=== PATIENT | female | born 1940 | race Hispanic/Latino ===

== ENCOUNTER 2017-04-03 23:18 | Emergency (ER) | payer MEDICARE ==
[2017-04-04 00:10] LABS: Basophils % (Auto) 0.5 % (0.0-1.8); Hematocrit 42.7 % (30.3-42.9); Hemoglobin 14.3 gm/dl (10.1-14.3); Mean Corpuscular HGB Conc 33 % (30-34); Mean Corpuscular Hemoglobin 33 pg (28-32); Mean Corpuscular Volume 98 fl (79-97); Platelet Count 224 K/mm3 (140-440); Red Blood Count 4.36 M/mm3 (3.65-5.03); Red Cell Distribution Width 12.4 % (13.2-15.2)
[2017-04-04 00:21] LABS: INR 1.51 (0.87-1.13)
[2017-04-04 00:22] LABS: Partial Thromboplastin Time 34.1 Sec. (24.2-36.6)
[2017-04-04 00:30] LABS: Alanine Aminotransferase 17 units/L (7-56); Albumin 4.3 g/dL (3.9-5); Albumin/Globulin Ratio 1.7 %; Alkaline Phosphatase 76 units/L (35-129); Anion Gap 17 mmol/L; BUN/Creatinine Ratio 22; Blood Urea Nitrogen 13 mg/dL (7-17); Calcium 8.7 mg/dL (8.4-10.2); Carbon Dioxide 25 mmol/L (22-30); Chloride 103.9 mmol/L (98-107); Glucose 111 mg/dL (65-100); Lipase 37 units/L (13-60); Sodium 142 mmol/L (137-145); Total Protein 6.8 g/dL (6.3-8.2)
[2017-04-04 01:45] LABS: Bilirubin,Urine NEG (Negative); Blood,Urine MOD (Negative); Ketones,Urine NEG (Negative); Leukocyte Esterase,Urine NEG (Negative); Nitrite,Urine NEG (Negative); Protein,Urine <15 mg/dL mg/dL (Negative); Urobilinogen,Urine < 2.0 mg/dL (<2.0)
[2017-04-04 01:46] LABS: Bacteria,Urine 3+ /HPF (Negative); Mucus,Urine FEW /HPF
[2017-04-04] MEDS ORDERED: SUBLIMAZE ONE (04:29)
[2017-04-04 04:35] VITALS: BP 160/78
[2017-04-04] MEDS ORDERED: SUBLIMAZE IV ONE (04:37)
--- NOTE | 2017-04-04 05:34 | Emergency Department Report ---
ED General Adult HPI - General Chief complaint: Abdominal Pain Stated complaint: BACK/LT FLANK PAIN Time Seen by Provider: 04/04/17 04:15 Source: patient, RN notes reviewed, old records reviewed Mode of arrival: Ambulatory Limitations: No Limitations - History of Present Illness Initial comments: Primary care Dr.: Dr. Peterson Cardiology: Dr. Casillas This is a 76-year-old female, past medical history includes hypertension, high cholesterol, paroxysmal atrial fibrillation, on warfarin anticoagulation Patient presents to the ER with left lower back pain/left lower quadrant pain. The pain has been present since 9:00 yesterday. It is constant. It increases with palpation, physical exertion, decreases with rest. There is no headache, neck pain, chest pain, upper quadrant abdominal pain. No leg pain, no leg swelling, no DVT or pulmonary embolus risk factors as per patient, patient denies urinary symptoms. Patient presented to the hospital last year with similar symptoms, had a negative noncontrast CT scan of the abdomen and pelvis -: Gradual Location: back, abdomen Radiation: back Severity scale (0 -10): 10 Quality: aching Consistency: intermittent Improves with: movement, rest Associated Symptoms: denies: confusion, chest pain, cough, diaphoresis, fever/ chills, headaches, loss of appetite, malaise, nausea/vomiting, rash, shortness of breath, syncope, weakness - Related Data Home Medications Medication Instructions Recorded Confirmed Last Taken Estrogens, Conjugated [Premarin] 0.3 mg PO QDAY 12/29/12 04/03/17 1 Day Ago ~03/28/16 Hydrochlorothiazide [HCTZ] 12.5 mg PO QDAY 12/29/12 04/03/17 1 Day Ago ~03/28/16 Lisinopril [Zestril TAB] 40 mg PO QDAY 12/29/12 04/03/17 1 Day Ago ~03/28/16 Simvastatin 20 mg PO QDAY 12/29/12 04/03/17 1 Day Ago ~03/28/16 Metoprolol Xl [Metoprolol 25 mg PO QDAY 12/09/15 04/03/17 1 Day Ago SUCCINATE ER TAB] ~03/28/16 Warfarin [Coumadin] 2.5 mg PO QDAY 12/09/15 04/03/17 1 Day Ago ~03/28/16 amLODIPine 5 mg PO DAILY 04/03/17 04/03/17 Unknown Previous Rx's Medication Instructions Recorded Last Taken Type Acetaminophen [Acetaminophen TAB] 500 mg PO Q4HR PRN #30 tablet 03/29/16 Unknown Rx Acetaminophen [Tylenol Arthritis] 650 mg PO Q6HR PRN #30 tablet.er 04/04/17 Unknown Rx Allergies Allergy/AdvReac Type Severity Reaction Status Date / Time codeine Allergy rash, Verified 09/20/13 17:34 itching metronidazole [From Flagyl] Allergy bitter Verified 09/20/13 17:34 taste with all foods bandaid AdvReac sores on Uncoded 09/20/13 17:34 skin tape AdvReac sores on Uncoded 09/20/13 17:34 skin ED Review of Systems ROS: Stated complaint: BACK/LT FLANK PAIN Other details as noted in HPI Constitutional: denies: fever Eyes: denies: eye discharge ENT: denies: epistaxis Respiratory: denies: cough Cardiovascular: denies: chest pain Gastrointestinal: abdominal pain Genitourinary: denies: dysuria Musculoskeletal: back pain Skin: denies: lesions Neurological: denies: weakness ED Past Medical Hx - Past Medical History Hx Hypertension: Yes (since 2008) Hx Congestive Heart Failure: No Hx Diabetes: No Hx GERD: Yes Hx Kidney Stones: Yes Hx Asthma: No Hx COPD: No Additional medical history: dysplasia, AFib - Surgical History Hx Appendectomy: Yes Hx Breast Surgery: Yes (right breast open biopsy x 5) Additional Surgical History: cystoscope right. polyps removed from urethra, Right Knee. neck surgery x 2. hysterectomy. T&A. cataract surgery both eyes - Social History Smoking Status: Never Smoker Substance Use Type: None - Medications Home Medications: Home Medications Medication Instructions Recorded Confirmed Last Taken Type Estrogens, Conjugated [Premarin] 0.3 mg PO QDAY 12/29/12 04/03/17 1 Day Ago History ~03/28/16 Hydrochlorothiazide [HCTZ] 12.5 mg PO QDAY 12/29/12 04/03/17 1 Day Ago History ~03/28/16 Lisinopril [Zestril TAB] 40 mg PO QDAY 12/29/12 04/03/17 1 Day Ago History ~03/28/16 Simvastatin 20 mg PO QDAY 12/29/12 04/03/17 1 Day Ago History ~03/28/16 Metoprolol Xl [Metoprolol 25 mg PO QDAY 12/09/15 04/03/17 1 Day Ago History SUCCINATE ER TAB] ~03/28/16 Warfarin [Coumadin] 2.5 mg PO QDAY 12/09/15 04/03/17 1 Day Ago History ~03/28/16 Acetaminophen [Acetaminophen TAB] 500 mg PO Q4HR PRN #30 tablet 03/29/16 Unknown Rx amLODIPine 5 mg PO DAILY 04/03/17 04/03/17 Unknown History Acetaminophen [Tylenol Arthritis] 650 mg PO Q6HR PRN #30 tablet.er 04/04/17 Unknown Rx ED Physical Exam - General Limitations: No Limitations General appearance: alert, in no apparent distress - Head Head exam: Present: atraumatic, normocephalic - Eye Eye exam: Present: normal appearance, EOMI. Absent: nystagmus - ENT ENT exam: Present: normal exam, normal orophraynx, mucous membranes moist, normal external ear exam - Neck Neck exam: Present: normal inspection, full ROM - Respiratory Respiratory exam: Present: normal lung sounds bilaterally. Absent: respiratory distress - Cardiovascular Cardiovascular Exam: Present: regular rate, normal rhythm, normal heart sounds. Absent: systolic murmur, diastolic murmur, rubs, gallop - GI/Abdominal GI/Abdominal exam: Present: soft, tenderness (left lower quadrant, left flank tender), normal bowel sounds. Absent: distended, guarding, rebound, rigid, pulsatile mass - Extremities Exam Extremities exam: Present: normal inspection, full ROM, normal capillary refill. Absent: pedal edema, joint swelling, calf tenderness - Back Exam Back exam: Present: normal inspection, full ROM. Absent: tenderness, CVA tenderness (R), paraspinal tenderness, vertebral tenderness - Neurological Exam Neurological exam: Present: alert, oriented X3, CN II-XII intact, other ( Extraocular movements intact. Tongue midline. No facial droop. Facial sensation intact to light touch in the V1, V2, V3 distribution bilaterally. 5 and 5 strength in 4 extremities.. Sensation is intact to light touch in 4 extremities.). Absent: motor sensory deficit - Psychiatric Psychiatric exam: Present: normal affect, normal mood - Skin Skin exam: Present: warm, dry, intact, normal color. Absent: rash ED Course Vital Signs 04/03/17 04/03/17 04/04/17 23:21 23:40 04:34 Temperature 97.7 F 97.7 F 97.8 F Pulse Rate 82 80 82 Respiratory 18 16 18 Rate Blood Pressure 168/68 168/68 Blood Pressure 160/78 [Left] O2 Sat by Pulse 99 99 99 Oximetry 04/04/17 04:38 Temperature Pulse Rate Respiratory 18 Rate Blood Pressure Blood Pressure [Left] O2 Sat by Pulse Oximetry - Reevaluation(s) Reevaluation #1: 04/04/17 05:33 Differential diagnosis, including but not limited to: Pneumonia, retroperitoneal hematoma, renal colic, abdominal wall hematoma, rectus sheath hematoma, psoas hematoma, urinary tract infection Assessment and plan: 76-year-old female, no pulmonary embolus or DVT risk factors, low risk by well's criteria, on systemic anticoagulation, although subtherapeutic, with lower back pain and left lower quadrant abdominal pain that is atraumatic. Patient is afebrile with reassuring vital signs, pain appears to be reproducible, we will obtain noncontrast CT scan of the abdomen and pelvis. Urinalysis reviewed, not consistent with urinary tract infection, laboratory studies otherwise unremarkable, patient medicated with fentanyl. No chest pain, no shortness of breath Reevaluation #2: 04/04/17 05:58 CT scan of the abdomen and pelvis negative for acute disease. Patient will be discharged. ED Medical Decision Making - Lab Data Result diagrams: 04/03/17 23:55 04/03/17 23:55 Vital Signs 04/03/17 04/03/17 04/04/17 23:21 23:40 04:34 Temperature 97.7 F 97.7 F 97.8 F Pulse Rate 82 80 82 Respiratory 18 16 18 Rate Blood Pressure 168/68 168/68 Blood Pressure 160/78 [Left] O2 Sat by Pulse 99 99 99 Oximetry 04/04/17 04:38 Temperature Pulse Rate Respiratory 18 Rate Blood Pressure Blood Pressure [Left] O2 Sat by Pulse Oximetry Lab Results 04/03/17 04/03/17 04/03/17 Range/Units 23:55 23:55 23:55 WBC 7.0 (4.5-11.0) K/mm3 RBC 4.36 (3.65-5.03) M/mm3 Hgb 14.3 (10.1-14.3) gm/dl Hct 42.7 (30.3-42.9) % MCV 98 H (79-97) fl MCH 33 H (28-32) pg MCHC 33 (30-34) % RDW 12.4 L (13.2-15.2) % Plt Count 224 (140-440) K/mm3 Lymph % (Auto) 22.1 (13.4-35.0) % [place] % (Auto) 7.6 H (0.0-7.3) % Eos % (Auto) 1.0 (0.0-4.3) % Baso % (Auto) 0.5 (0.0-1.8) % Lymph # 1.6 (1.2-5.4) K/mm3 [place] # 0.5 (0.0-0.8) K/mm3 Eos # 0.1 (0.0-0.4) K/mm3 Baso # 0.0 (0.0-0.1) K/mm3 Seg Neutrophils % 68.8 (40.0-70.0) % Seg Neutrophils # 4.8 (1.8-7.7) K/mm3 PT 19.1 H (12.2-14.9) Sec. INR 1.51 H (0.87-1.13) APTT 34.1 (24.2-36.6) Sec. Sodium 142 (137-145) mmol/L Potassium 4.0 (3.6-5.0) mmol/L Chloride 103.9 (98-107) mmol/L Carbon Dioxide 25 (22-30) mmol/L Anion Gap 17 mmol/L BUN 13 (7-17) mg/dL Creatinine 0.6 L (0.7-1.2) mg/dL Estimated GFR > 60 ml/min BUN/Creatinine Ratio 22 % Glucose 111 H (65-100) mg/dL Calcium 8.7 (8.4-10.2) mg/dL Total Bilirubin 0.40 (0.1-1.2) mg/dL AST 22 (5-40) units/L ALT 17 (7-56) units/L Alkaline Phosphatase 76 (35-129) units/L Total Protein 6.8 (6.3-8.2) g/dL Albumin 4.3 (3.9-5) g/dL Albumin/Globulin Ratio 1.7 % Lipase 37 (13-60) units/L Urine Color (Yellow) Urine Turbidity (Clear) Urine pH (5.0-7.0) Ur Specific [place] (1.003-1.030) Urine Protein (Negative) mg/dL Urine Glucose (UA) (Negative) mg/dL Urine Ketones (Negative) mg/dL Urine Blood (Negative) Urine Nitrite (Negative) Urine Bilirubin (Negative) Urine Urobilinogen (<2.0) mg/dL Ur Leukocyte Esterase (Negative) Urine WBC (Auto) (0.0-6.0) /HPF Urine RBC (Auto) (0.0-6.0) /HPF U Epithel Cells (Auto) (0-13.0) /HPF Urine Bacteria (Auto) (Negative) /HPF Urine Mucus /HPF 04/03/17 Range/Units Unknown WBC (4.5-11.0) K/mm3 RBC (3.65-5.03) M/mm3 Hgb (10.1-14.3) gm/dl Hct (30.3-42.9) % MCV (79-97) fl MCH (28-32) pg MCHC (30-34) % RDW (13.2-15.2) % Plt Count (140-440) K/mm3 Lymph % (Auto) (13.4-35.0) % [place] % (Auto) (0.0-7.3) % Eos % (Auto) (0.0-4.3) % Baso % (Auto) (0.0-1.8) % Lymph # (1.2-5.4) K/mm3 [place] # (0.0-0.8) K/mm3 Eos # (0.0-0.4) K/mm3 Baso # (0.0-0.1) K/mm3 Seg Neutrophils % (40.0-70.0) % Seg Neutrophils # (1.8-7.7) K/mm3 PT (12.2-14.9) Sec. INR (0.87-1.13) APTT (24.2-36.6) Sec. Sodium (137-145) mmol/L Potassium (3.6-5.0) mmol/L Chloride (98-107) mmol/L Carbon Dioxide (22-30) mmol/L Anion Gap mmol/L BUN (7-17) mg/dL Creatinine (0.7-1.2) mg/dL Estimated GFR ml/min BUN/Creatinine Ratio % Glucose (65-100) mg/dL Calcium (8.4-10.2) mg/dL Total Bilirubin (0.1-1.2) mg/dL AST (5-40) units/L ALT (7-56) units/L Alkaline Phosphatase (35-129) units/L Total Protein (6.3-8.2) g/dL Albumin (3.9-5) g/dL Albumin/Globulin Ratio % Lipase (13-60) units/L Urine Color Red (Yellow) Urine Turbidity Clear (Clear) Urine pH 5.0 (5.0-7.0) Ur Specific [place] 1.012 (1.003-1.030) Urine Protein <15 mg/dl (Negative) mg/dL Urine Glucose (UA) Neg (Negative) mg/dL Urine Ketones Neg (Negative) mg/dL Urine Blood Mod (Negative) Urine Nitrite Neg (Negative) Urine Bilirubin Neg (Negative) Urine Urobilinogen < 2.0 (<2.0) mg/dL Ur Leukocyte Esterase Neg (Negative) Urine WBC (Auto) 4.0 (0.0-6.0) /HPF Urine RBC (Auto) 4.0 (0.0-6.0) /HPF U Epithel Cells (Auto) 1.0 (0-13.0) /HPF Urine Bacteria (Auto) 3+ (Negative) /HPF Urine Mucus Few /HPF - Radiology Data Radiology results: pending, report reviewed, image reviewed Critical care attestation.: If time is entered above; I have spent that time in minutes in the direct care of this critically ill patient, excluding procedure time. ED Disposition Clinical Impression: Left flank pain, Subtherapeutic anticoagulation Disposition: DC-01 TO HOME OR SELFCARE Is pt being admited?: No Does the pt Need Aspirin: No Condition: Stable Instructions: Abdominal Pain (ED) Additional Instructions: Take the pain medication as directed. Follow-up with your primary care doctor within the next 3-5 days. Please note that Coumadin level/INR was lower than it should be. I recommend that you take a double dose of Coumadin for the next 48 hours and follow-up with her primary care doctor is recommended to have her Coumadin level rechecked. Rest and avoid heavy lifting, and avoid strenuous physical activity. Return to the ER right away with new pain, worsening pain, migration of pain, fevers, chills, lethargy, irritability, projectile vomiting, change in mental status, confusion, inability to tolerate liquid feeds. Referrals: PRIMARY CAREMD [Primary Care Provider] - 3-5 Days MARTINEZ PETERSON MD [Staff Physician] - 3-5 Days
--- NOTE | 2017-04-04 05:55 | Cat Scan Report ---
FINAL REPORT EXAM: CT ABDOMEN PELVIS WO CON HISTORY: lla/flank pain TECHNIQUE: Routine axial imaging was obtained of the abdomen pelvis without oral or IV contrast. Sagittal and coronal reconstructions were obtained. Comparison is made the study of 03/28/2016. FINDINGS: Images through lung bases reveal nonspecific interstitial changes in both lower lobes. Pleural fluid is not seen. There is a small hiatal hernia. The liver, gallbladder, pancreas, spleen, and adrenal glands appear normal. The kidneys show no evidence of stones or hydronephrosis. There calcification of the abdominal aorta. The bowel loops are normal in caliber. There are numerous scattered uncomplicated diverticula in the colon. There is no evidence of free fluid or adenopathy. The bladder appears normal. The uterus has been removed. The skeletal structures reveal disc degeneration at the L3-4 and L4-5 levels. IMPRESSION: No acute process in the abdomen and pelvis. Uncomplicated colonic diverticulosis. Hysterectomy. Non specific interstitial changes in both lower lobes.
[2017-04-04] MEDS ORDERED: TYLENOL PO ONE (05:58)
== END 2017-04-04 06:12 | disposition home or self-care (01) ==
LOC: ED 23:18
DX: R10.32 Left lower quadrant pain (principal); R79.1 Abnormal coagulation profile; K21.9 Gastro-esophageal reflux disease without esophagitis; Z90.710 Acquired absence of both cervix and uterus; I10 Essential (primary) hypertension; Z88.5 Allergy status to narcotic agent; Z88.8 Allergy status to other drugs, medicaments and biological substances
CPT/HCPCS: 36415; 74176; 80053; 81001; 83690; 85025; 85610; 85730; 96374; 99284; J3010

== ENCOUNTER 2019-08-31 11:02 | Observation (INO) | payer MEDICARE ==
--- NOTE | 2019-08-31 11:50 | Emergency Department Report ---
ED Chest Pain HPI - General Chief Complaint: Chest Pain Stated Complaint: CHEST PAIN Time Seen by Provider: 08/31/19 11:16 Source: patient Mode of arrival: Ambulatory Limitations: No Limitations - History of Present Illness Initial Comments: Mrs. Hudson is a 78-year-old female with history of GERD atrial fibrillation on Coumadin, hypertension who presents with several days of chest pain. On Wednesday she had a right-sided dull constant pain. The pain is now migrated to the left chest. She was evaluated by her PCP Dr. Placido Heath who contacted her associate marketing manager Dr. Victorino Casillas. Automatic Developer recommended evaluation in the emergency department. She has constant dull left chest pain. The pain does not change with movement or exertion. Denies shortness of breath. Several days ago she developed red rash on both legs. No trauma. Initially the rash was sore and tender. Now the lesions are painless. In November 2015 admitted for chest pain and admitted to rule out coronary syndrome. Chest pain due to GERD at that time. November 2015, myocardial perfusion scan demonstrated normal ejection fraction, no significant stress-induced perfusion defects normal left ventricular wall motion MD Complaint: chest pain -: Gradual (5) Onset: during rest Pain Location: left chest, right chest Pain Radiation: none Severity: mild Quality: dull Consistency: constant Improves With: nothing Worsens With: nothing Other Symptoms: other (Bilateral lower extremity rash) - Related Data Home Medications Medication Instructions Recorded Confirmed Last Taken Estrogens, Conjugated [Premarin] 0.3 mg PO QDAY 12/29/12 04/03/17 1 Day Ago ~03/28/16 Simvastatin 20 mg PO QDAY 12/29/12 04/03/17 1 Day Ago ~03/28/16 hydroCHLOROthiazide [HCTZ] 12.5 mg PO QDAY 12/29/12 04/03/17 1 Day Ago ~03/28/16 lisinopriL [Zestril TAB] 40 mg PO QDAY 12/29/12 04/03/17 1 Day Ago ~03/28/16 Metoprolol Xl [Metoprolol 25 mg PO QDAY 12/09/15 04/03/17 1 Day Ago SUCCINATE ER TAB] ~03/28/16 Warfarin [Coumadin] 2.5 mg PO QDAY 12/09/15 04/03/17 1 Day Ago ~03/28/16 amLODIPine 5 mg PO DAILY 04/03/17 04/03/17 Unknown Previous Rx's Medication Instructions Recorded Last Taken Type Acetaminophen [Acetaminophen TAB] 500 mg PO Q4HR PRN #30 tablet 03/29/16 Unknown Rx Acetaminophen [Tylenol Arthritis] 650 mg PO Q6HR PRN #30 tablet.er 04/04/17 Unknown Rx Allergies Allergy/AdvReac Type Severity Reaction Status Date / Time codeine Allergy rash, Verified 09/20/13 17:34 itching metronidazole [From Flagyl] Allergy bitter Verified 09/20/13 17:34 taste with all foods bandaid AdvReac sores on Uncoded 09/20/13 17:34 skin tape AdvReac sores on Uncoded 09/20/13 17:34 skin Heart Score - HEART Score History: Moderately suspicious EKG: Non-specific Age: > 65 Risk factors: 1-2 risk factors Troponin: < normal limit HEART Score: 5 ED Review of Systems ROS: Stated complaint: CHEST PAIN Other details as noted in HPI Comment: All other systems reviewed and negative Constitutional: denies: chills, fever Eyes: denies: eye pain, eye discharge, vision change ENT: denies: ear pain, throat pain Respiratory: denies: cough, shortness of breath, wheezing Cardiovascular: denies: chest pain, palpitations Endocrine: no symptoms reported Gastrointestinal: denies: abdominal pain, nausea, diarrhea Genitourinary: denies: urgency, dysuria, discharge Musculoskeletal: denies: back pain Skin: rash, lesions Neurological: denies: headache, weakness, paresthesias Psychiatric: denies: anxiety, depression Hematological/Lymphatic: denies: easy bleeding, easy bruising ED Past Medical Hx - Past Medical History Previous Medical History?: Yes Hx Hypertension: Yes (since 2008) Hx Congestive Heart Failure: No Hx Diabetes: No Hx GERD: Yes Hx Kidney Stones: Yes Hx Asthma: No Hx COPD: No Additional medical history: dysplasia, AFib - Surgical History Past Surgical History?: Yes Hx Appendectomy: Yes Hx Breast Surgery: Yes (right breast open biopsy x 5) Additional Surgical History: cystoscope right. polyps removed from urethra, Right Knee. neck surgery x 2. hysterectomy. T&A. cataract surgery both eyes - Social History Smoking Status: Never Smoker Substance Use Type: None - Medications Home Medications: Home Medications Medication Instructions Recorded Confirmed Last Taken Type Estrogens, Conjugated [Premarin] 0.3 mg PO QDAY 12/29/12 04/03/17 1 Day Ago Hi story ~03/28/16 Simvastatin 20 mg PO QDAY 12/29/12 04/03/17 1 Day Ago History ~03/28/16 hydroCHLOROthiazide [HCTZ] 12.5 mg PO QDAY 12/29/12 04/03/17 1 Day Ago History ~03/28/16 lisinopriL [Zestril TAB] 40 mg PO QDAY 12/29/12 04/03/17 1 Day Ago History ~03/28/16 Metoprolol Xl [Metoprolol 25 mg PO QDAY 12/09/15 04/03/17 1 Day Ago History SUCCINATE ER TAB] ~03/28/16 Warfarin [Coumadin] 2.5 mg PO QDAY 12/09/15 04/03/17 1 Day Ago History ~03/28/16 Acetaminophen [Acetaminophen TAB] 500 mg PO Q4HR PRN #30 tablet 03/29/16 04/03/17 Unknown Rx amLODIPine 5 mg PO DAILY 04/03/17 04/03/17 Unknown History Acetaminophen [Tylenol Arthritis] 650 mg PO Q6HR PRN #30 tablet.er 04/04/17 Unknown Rx ED Physical Exam - General Limitations: No Limitations General appearance: alert, in no apparent distress, other (Pleasant appears in no distress) - Head Head exam: Present: atraumatic, normocephalic - Eye Eye exam: Present: normal appearance - ENT ENT exam: Present: mucous membranes moist - Neck Neck exam: Present: normal inspection, full ROM - Respiratory Respiratory exam: Present: normal lung sounds bilaterally. Absent: respiratory distress, wheezes, rales, rhonchi - Cardiovascular Cardiovascular Exam: Present: normal rhythm, tachycardia, normal heart sounds. Absent: systolic murmur, diastolic murmur, rubs, gallop - GI/Abdominal GI/Abdominal exam: Present: soft, normal bowel sounds. Absent: distended, tenderness, guarding, rebound - Extremities Exam Extremities exam: Present: pedal edema, other (Petechial patchy rash purpuric with petechia non-blanching erythematous lesions ranging in size from 0.5mm to 3 cm in diameter) - Back Exam Back exam: Present: normal inspection - Neurological Exam Neurological exam: Present: alert, oriented X3 - Psychiatric Psychiatric exam: Present: normal affect, normal mood - Skin Skin exam: Present: warm, intact, other (petechia and purpuria) ED Course Vital Signs 08/31/19 08/31/19 08/31/19 11:25 11:46 11:56 Temperature 97.5 F L Pulse Rate 106 H 106 H Respiratory 20 12 16 Rate Blood Pressure 118/82 145/73 O2 Sat by Pulse 99 99 98 Oximetry 08/31/19 08/31/19 08/31/19 12:00 12:15 12:30 Temperature Pulse Rate 113 H 108 H 97 H Respiratory 13 12 14 Rate Blood Pressure 132/72 128/88 143/77 O2 Sat by Pulse 99 98 98 Oximetry 08/31/19 08/31/19 12:45 13:00 Temperature Pulse Rate 105 H 96 H Respiratory 12 14 Rate Blood Pressure 142/78 140/74 O2 Sat by Pulse 99 98 Oximetry ED Medical Decision Making - Lab Data Result diagrams: 08/31/19 11:49 08/31/19 11:49 Laboratory Results - last 24 hr 08/31/19 08/31/19 08/31/19 11:49 11:49 14:05 WBC 7.1 RBC 4.60 Hgb 14.8 H Hct 44.3 H MCV 96 MCH 32 MCHC 33 RDW 13.0 L Plt Count 218 Lymph % (Auto) 24.0 [place] % (Auto) 10.4 H Eos % (Auto) 1.6 Baso % (Auto) 0.4 Lymph # 1.7 [place] # 0.7 Eos # 0.1 Baso # 0.0 Seg Neutrophils % 63.6 Seg Neutrophils # 4.5 PT 22.9 H INR 2.09 H Sodium 138 Potassium 3.9 Chloride 101.2 Carbon Dioxide 21 L Anion Gap 20 BUN 12 Creatinine 0.6 L Estimated GFR > 60 BUN/Creatinine Ratio 20 Glucose 97 Calcium 9.5 Total Bilirubin 0.80 AST 20 ALT 12 Alkaline Phosphatase 95 Troponin T < 0.010 Total Protein 7.3 Albumin 3.8 L Albumin/Globulin Ratio 1.1 - EKG Data 08/31/19 11:52 EKG Atrial fibrillation RVR rate 100 bpm normal axis prolonged QTC no ST elevation nonspecific ST-T wave pattern 08/31/19 14:23 Second EKG obtained 1413 Atrial fibrillation ventricular rate 100 bpm normal axis nonspecific ST-T wave pattern - Medical Decision Making 1. Chest pain: Differential diagnosis includes ACS, GERD, discomfort due to rapid A. fib, I consulted Dr. Mayer associate marketing manager surveillance system monitor for [facility]. He recommended n.p.o. status for Lexiscan in the morning 2. Atrial fibrillation with RVR: unclear if patient has persistent or paroyxysmal atrial fibriallation, Ventricular rate consistently above 100 as compared to EKG from PCPs office, currently therapeutic on anticoagulation, 3. Purpuric rash due to Coumadin/warfarin use Admitted to hospitalist service Critical care attestation.: If time is entered above; I have spent that time in minutes in the direct care of this critically ill patient, excluding procedure time. ED Disposition Clinical Impression: Acute purpuric eruption, Drug-induced skin rash, Anticoagulant long-term use, Chest pain, Atrial fibrillation with rapid ventricular response Disposition: OP ADMIT IP TO THIS HOSP Is pt being admited?: Yes Does the pt Need Aspirin: No Condition: Stable
--- NOTE | 2019-08-31 12:03 | XRay Report ---
CHEST 1 VIEW 11:28 AM INDICATION / CLINICAL INFORMATION: Chest Pain. COMPARISON: 12/09/2015. FINDINGS: SUPPORT DEVICES: None. HEART / MEDIASTINUM: The heart size and pulmonary vasculature are normal. There is a right aortic arc h. The cardiac apex is on the left. LUNGS / PLEURA: No significant pulmonary or pleural abnormality. No pneumothorax. ADDITIONAL FINDINGS: The stomach bubble is on the left and the liver is on the right. There is a smal l rounded ovoid ossific density overlying the glenohumeral joint inferiorly on the right, new since t he prior exam. There are surgical changes in the lower cervical spine. IMPRESSION: 1. No acute findings. 2. Right aortic arch. 3. Small intra-articular loose body involving the right glenohumeral joint. Signer Name: Gurmeet Cuevas MD Signed: 08/31/2019 11:59 AM Workstation Name: [id number]
[2019-08-31 12:05] LABS: Basophils % (Auto) 0.4 % (0.0-1.8); Eosinophils # (Auto) 0.1 K/mm3 (0.0-0.4); Eosinophils % (Auto) 1.6 % (0.0-4.3); Hematocrit 44.3 % (30.3-42.9); Hemoglobin 14.8 gm/dl (10.1-14.3); Lymphocytes # (Auto) 1.7 K/mm3 (1.2-5.4); Mean Corpuscular HGB Conc 33 % (30-34); Mean Corpuscular Volume 96 fl (79-97); Monocytes # (Auto) 0.7 K/mm3 (0.0-0.8); Monocytes % (Auto) 10.4 % (0.0-7.3); Platelet Count 218 K/mm3 (140-440)
[2019-08-31 12:32] LABS: Alanine Aminotransferase 12 units/L (7-56); Albumin 3.8 g/dL (3.9-5); BUN/Creatinine Ratio 20; Blood Urea Nitrogen 12 mg/dL (7-17); Calcium 9.5 mg/dL (8.4-10.2); Hemolysis Index 15
[2019-08-31 14:24] LABS: INR 2.09 (0.87-1.13)
[2019-08-31] MEDS ORDERED: METOPROLOL TARTRATE 50 MG TAB PO ONE (14:48)
--- NOTE | 2019-08-31 22:06 | Event Note ---
Date: 08/31/19 See history and physical in the reports Chest pain rule out AL Chest pain protocol
--- NOTE | 2019-08-31 22:36 | History and Physical Report ---
CHIEF COMPLAINT: Left-sided chest pain for 2 days. HISTORY OF PRESENT ILLNESS: A 78-year-old female with history of atrial fibrillation, on Coumadin; GERD; hypertension and coronary artery disease, comes in for left-sided chest pain of 2 days' duration. Had chest pain since 08/26/2019 on the right side, but became left-sided for the last 2 days. No radiation. No diaphoresis, no palpitations. Constant dull pain. The patient had multiple stress tests in the past, but the last one was more than a year ago. The patient is on Coumadin for atrial fibrillation. No palpitations. The patient had echocardiogram and myocardial perfusion scan in November 2015 with normal ejection fraction and no significant stress-induced perfusion defects. PAST MEDICAL HISTORY: As mentioned, hypertension, GERD, renal stones and hyperlipidemia, atrial fibrillation. PAST SURGICAL HISTORY: Right breast open biopsy, polyps removal from urethra, right knee surgery, neck surgery, hysterectomy, tonsillectomy and adenoidectomy. Cataract surgery, both eyes. SOCIAL HISTORY: Does not smoke. FAMILY HISTORY: Hypertension. REVIEW OF SYSTEMS: Significant for left-sided chest pain. Otherwise, review of systems negative. No shortness of breath, no diaphoresis, no palpitations. A 14-point review of systems done. PHYSICAL EXAMINATION: GENERAL: Elderly female, cooperative during examination, not in any distress. VITAL SIGNS: Temperature 97.5, pulse is 106, respiratory rate is 20, sats are 99%, blood pressure is 118/82. HEENT: Unremarkable. Pupils equal and reactive. NECK: Supple, no lymphadenopathy, no thyromegaly. LUNGS: Clear to auscultation and percussion. Good air entry. CARDIOVASCULAR: S1, S2 heard. No gallop, no murmur, no rub. Apical impulse in left fifth intercostal space and irregular heartbeat. ABDOMEN: Soft and benign. No hepatosplenomegaly. No guarding, no rigidity. Hernial orifices are normal. EXTREMITIES: Good pedal pulses. No pedal edema. Has a rash in the left lower extremity and right lower extremity, erythematous maculopapular lesions present. CENTRAL NERVOUS SYSTEM: Alert and oriented x 4, nonfocal exam. DIAGNOSTIC DATA: EKG shows atrial fibrillation with heart rate of 110 per minute. Chest x-ray shows no acute findings. Right aortic arch. A small intra-articular loose body involving the right glenohumeral joint. LABORATORY DATA: Significant for white count of 7100, H and H of 14.8 and 44.3, platelet count of 218,000. Sodium is 138, potassium is 3.9, BUN and creatinine is 12 and 1.6, albumin is 3.8. ASSESSMENT AND PLAN: 1. Chest pain, rule out myocardial infarction, chest pain protocol. Serial troponins. Lexiscan in the morning. Had a stress test 2-3 years ago. Old medical records reviewed. Ejection fraction was normal. 2. Hypertension. Continue lisinopril, metoprolol and amlodipine. 3. Hyperlipidemia. Continue simvastatin. 4. Atrial fibrillation. Continue Coumadin. 5. Deep venous thrombosis prophylaxis, the patient is already on Coumadin and INR is therapeutic. 6. Gastrointestinal prophylaxis. The patient admitted in observation status. JOB# [id number] VSM/NTS
[2019-08-31] MEDS: METOPROLOL SUCCINATE XL 25 MG TAB PO SCH (22:39)
[2019-09-01] MEDS ORDERED: REGADENOSON 0.4 MG/5 ML INJ IV ONE (08:33)
[2019-09-01] MEDS ORDERED: amLODIPine 5 MG TAB PO SCH (10:00)
[2019-09-01] MEDS ORDERED: ESTROGENS, CONJUGATED 0.3 MG TAB PO SCH (10:00)
[2019-09-01] MEDS ORDERED: NON-FORMULARY EACH (Amlodipine 5 MG) PO SCH (10:00)
[2019-09-01] MEDS ORDERED: LISINOPRIL 40 MG TAB PO SCH (10:00)
[2019-09-01] MEDS ORDERED: PRAVASTATIN 40 MG TAB PO SCH (10:00)
[2019-09-01] MEDS ORDERED: NON-FORMULARY EACH (Simvastatin [Simvastatin] 20 MG) PO SCH (10:00)
--- NOTE | 2019-09-01 10:17 | Treadmill Report ---
STRESS TEST READING PHYSICIAN: Dr. Mayer. REASON FOR STUDY: Chest pain. IMAGING PROTOCOL: The patient received 10 mCi of Technetium 99m Tetrofosmin for resting image and 28 mCi of Technetium 99m Tetrofosmin for stress imaging. The imaging for the whole procedure was completed 30-90 minutes following the initial injection of Technetium 99m Tetrofosmin. The SPECT imaging in the 180 degree arc was performed in the right anterior oblique projection. Computerized reconstruction of the images was performed for analysis. IMAGING RESULTS: Normal cavity size from stress to rest. Normal distribution of radionuclide in the anterior, inferior, septal, and apical regions. Gated SPECT, EF was not done secondary to atrial fibrillation. The patient was infused with Lexiscan with no EKG changes. SUMMARY: 1. Negative Lexiscan EKG. Baseline rhythm is atrial fibrillation. 2. Normal rest and stress myocardial perfusion scan. No significant ischemia. No gating was done secondary to atrial fibrillation. JOB# [id number] CRISTINA/RUFINA
--- NOTE | 2019-09-01 11:09 | Consultation ---
History of Present Illness Consult date: 09/01/19 Requesting physician: GLENNY LARA Consult reason: chest pain History of present illness: The pt is a 78YO female with a past medical history of paroxysmal atrial fibrillation, anticoagulated on coumadin, HTN, HLP, GERD. She is followed in our office by Dr. Arriaza. She presented with c/o several days of chest pain. On Wednesday she had a right-sided dull constant pain. The pain is now migrated to the left chest. She was evaluated by her PCP Dr. Placido Heath who contacted her beam machine operator Dr. Victorino Arriaza who recommended evaluation in the emergency department. Pt denies any associated SOB, palpitations, n/v, diaphoresis, dizziness or syncope. Several days ago she developed red rash on both legs. No trauma. Initially the rash was sore and tender. Now the lesions are painless. LHC done 01/2011 showed normal coronaries, EF 55-60%. Lexiscan MPI stress test done 11/2015 was negative. Echo done 08/2016 showed EF 50-55%, mild to mod MR, mild to mod TR. Past History Past Medical History: other (as per HPI) Medications and Allergies Allergies Allergy/AdvReac Type Severity Reaction Status Date / Time codeine Allergy rash, Verified 09/20/13 17:34 itching metronidazole [From Flagyl] Allergy bitter Verified 09/20/13 17:34 taste with all foods bandaid AdvReac sores on Uncoded 09/20/13 17:34 skin tape AdvReac sores on Uncoded 09/20/13 17:34 skin Home Medications Medication Instructions Recorded Confirmed Last Taken Type Estrogens, Conjugated [Premarin] 0.3 mg PO QDAY 12/29/12 08/31/19 08/31/19 History Simvastatin 20 mg PO QDAY 12/29/12 08/31/19 08/30/19 History lisinopriL [Zestril TAB] 40 mg PO QDAY 12/29/12 08/31/19 08/31/19 History Metoprolol Xl [Metoprolol 25 mg PO BID 12/09/15 08/31/19 08/31/19 History SUCCINATE ER TAB] Warfarin [Coumadin] 2.5 mg PO QDAY 12/09/15 08/31/19 08/30/19 History amLODIPine 5 mg PO DAILY 04/03/17 08/31/19 08/31/19 History Active Meds: Active Medications Amlodipine Besylate (Amlodipine) 5 mg PO DAILY [facility] Estrogens Conjugated (Premarin) 0.3 mg PO QDAY [facility] Lisinopril (Zestril) 40 mg PO QDAY [facility] Metoprolol Succinate (Metoprolol Xl) 25 mg PO BID [facility] Last Admin: 08/31/19 22:39 Dose: 25 mg Documented by: Pravastatin Sodium (Pravachol) 40 mg PO QDAY [facility] Warfarin Sodium (Coumadin) 2.5 mg PO QDAY@1700 [facility]; Protocol Review of Systems Constitutional: no weight loss, no weight gain, no fever, no chills, no sweats Ears, nose, mouth and throat: no ear pain, no nose pain, no sinus pressure, no sinus pain Cardiovascular: chest pain, no orthopnea, no palpitations, no rapid/irregular heart beat, no edema, no syncope, no lightheadedness, no shortness of breath, no dyspnea on exertion Respiratory: no cough, no shortness of breath, no dyspnea on exertion, no congestion, no wheezing, no pain on inspiration Gastrointestinal: no abdominal pain, no nausea, no vomiting, no diarrhea, no constipation, no change in bowel habits Genitourinary Female: no pelvic pain, no flank pain, no dysuria, no urinary frequency, no urgency Musculoskeletal: no neck stiffness, no neck pain, no shooting arm pain, no arm numbness/tingling, no low back pain, no shooting leg pain Integumentary: no rash, no pruritis, no redness, no sores, no wounds Neurological: no head injury, no paralysis, no weakness, no parathesias, no numbness, no tingling, no seizures, no syncope Psychiatric: no anxiety Endocrine: no cold intolerance, no heat intolerance Hematologic/Lymphatic: no easy bruising, no easy bleeding Allergic/Immunologic: no urticaria Physical Examination Vital Signs Temp Pulse Resp BP Pulse Ox 97.5 F L 106 H 20 118/82 99 08/31/19 11:25 08/31/19 11:25 08/31/19 11:25 08/31/19 11:25 08/31/19 11:25 General appearance: no acute distress HEENT: Positive: PERRL, Normocephaly, Mucus Membranes Moist Neck: Positive: neck supple, trachea midline Cardiac: Positive: Reg Rate and Rhythm, S1/S2 Lungs: Positive: Decreased Breath Sounds Neuro: Positive: Grossly Intact Abdomen: Negative: Tender Skin: Negative: Rash Musculoskeletal: No Pain Extremities: Absent: edema Results 08/31/19 11:49 08/31/19 11:49 Cardiac Enzymes 08/31/19 Range/Units 11:49 AST 20 (5-40) units/L Coagulation 08/31/19 Range/Units 14:05 PT 22.9 H (12.2-14.9) Sec. INR 2.09 H (0.87-1.13) CBC 08/31/19 Range/Units 11:49 WBC 7.1 (4.5-11.0) K/mm3 RBC 4.60 (3.65-5.03) M/mm3 Hgb 14.8 H (10.1-14.3) gm/dl Hct 44.3 H (30.3-42.9) % Plt Count 218 (140-440) K/mm3 Lymph # 1.7 (1.2-5.4) K/mm3 [place] # 0.7 (0.0-0.8) K/mm3 Eos # 0.1 (0.0-0.4) K/mm3 Baso # 0.0 (0.0-0.1) K/mm3 Comprehensive Metabolic Panel 08/31/19 Range/Units 11:49 Sodium 138 (137-145) mmol/L Potassium 3.9 (3.6-5.0) mmol/L Chloride 101.2 (98-107) mmol/L Carbon Dioxide 21 L (22-30) mmol/L BUN 12 (7-17) mg/dL Creatinine 0.6 L (0.7-1.2) mg/dL Glucose 97 (65-100) mg/dL Calcium 9.5 (8.4-10.2) mg/dL AST 20 (5-40) units/L ALT 12 (7-56) units/L Alkaline Phosphatase 95 (35-129) units/L Total Protein 7.3 (6.3-8.2) g/dL Albumin 3.8 L (3.9-5) g/dL - Imaging and Cardiology Echo: report reviewed ( 08/2016 showed EF 50-55%, mild to mod MR, mild to mod TR. ) Cardiac cath: report reviewed (01/2011 showed normal coronaries, EF 55-60%. ) EKG: report reviewed, image reviewed EKG interpretations - Telemetry EKG Rhythm: Atrial Fibrillation - EKG Supraventricular dysrhythmia: atrial fibrillation Assessment and Plan S/p lexiscan MPI stress test today which was negative. Chest pain currently re solved. AMI r/o. Currently stable cardiac status. Pt may discharge from cardiology standpoint on home cardiac regimen. Recommend pt follow up in our office with Dr. Arriaza within 2 weeks of discharge ([phone]). The patient has been seen in conjunction with Dr. Mayer who agrees with the as sessment an - Patient Problems (1) Chest pain Current Visit: Yes Status: Resolved (2) Paroxysmal atrial fibrillation Current Visit: Yes Status: Chronic (3) Anticoagulated on Coumadin Current Visit: Yes Status: Chronic (4) HTN (hypertension) Current Visit: Yes Status: Chronic (5) Hyperlipemia Current Visit: Yes Status: Chronic (6) GERD (gastroesophageal reflux disease) Current Visit: Yes Status: Chronic Qualifiers: Esophagitis presence: without esophagitis Qualified Code(s): K21.9 - Gastro-esophageal reflux disease without esophagitis
[2019-09-01 11:39] VITALS: BP 125/70
[2019-09-01] MEDS: METOPROLOL SUCCINATE XL 25 MG TAB PO SCH (13:21)
--- NOTE | 2019-09-01 15:01 | Discharge Summary ---
Providers - Providers Date of Admission: 08/31/19 14:51 Date of discharge: 09/01/19 Attending physician: ADENIKE AKHTAR 08/31/19 14:45 Consult to Physician [CONS] Stat Comment: SHE SPK W/DR PENALOZA @[id number] Consulting Provider: AIDEE PENALOZA Physician Instructions: Reason For Exam: chest pain r/o ACS [facility] Condition: Stable Pertinent studies: Lexiscan is normal Hospital course: The pt is a 78YO female with a past medical history of paroxysmal atrial fibrillation, anticoagulated on coumadin, HTN, HLP, GERD. She is followed in our office by Dr. Arriaza. She presented with c/o several days of chest pain. On Wednesday she had a right-sided dull constant pain. The pain is now migrated to the left chest. She was evaluated by her PCP Dr. Placido Heath who contacted her search advertising strategist Dr. Victorino Arriaza who recommended evaluation in the emergency department. Pt denies any associated SOB, palpitations, n/v, diaphoresis, dizziness or syncope. Several days ago she developed red rash on both legs. No trauma. Initially the rash was sore and tender. Now the lesions are painless. LHC done 01/2011 showed normal coronaries, EF 55-60%. Lexiscan MPI stress test done 11/2015 was negative. Echo done 08/2016 showed EF 50-55%, mild to mod MR, mild to mod TR. Patient was admitted for 1 chest pain rule out CT Patient had Lexiscan which was negative Troponins were negative #2 hypertension Controlled continue lisinopril metoprolol and amlodipine #3 hyperlipidemia Continue statins #4 atrial fibrillation Continue Coumadin INR therapeutic #5 costochondritis Tylenol as needed because NSAIDS could not be given as the patient is on Coumadin Discharge diagnosis Atypical chest pain Costochondritis Hypertension Hyperlipidemia Atrial fibrillation Anticoagulation therapeutic Disposition: - TO HOME OR SELFCARE Core Measure Documentation - Palliative Care Palliative Care/ Comfort Measures: Not Applicable - Core Measures Any of the following diagnoses?: none Exam - Constitutional Vitals: Temp Pulse Resp BP Pulse Ox 98.0 F 92 H 20 125/70 97 09/01/19 11:05 09/01/19 13:22 09/01/19 11:05 09/01/19 13:22 09/01/19 11:05 General appearance: Present: no acute distress, well-nourished - EENT Eyes: Present: PERRL ENT: hearing intact, clear oral mucosa - Neck Neck: Present: supple, normal ROM - Respiratory Respiratory effort: normal Respiratory: bilateral: CTA - Cardiovascular Heart rate: 78 Rhythm: regular Heart Sounds: Present: S1 & S2. Absent: rub, click - Extremities Extremities: pulses symmetrical, No edema Peripheral Pulses: within normal limits - Abdominal General gastrointestinal: Present: soft, non-tender, non-distended, normal bowel sounds Female genitourinary: Present: normal - Integumentary Integumentary: Present: clear, warm, dry - Musculoskeletal Musculoskeletal: gait normal, strength equal bilaterally - Psychiatric Psychiatric: appropriate mood/affect, intact judgment & insight - Neurologic Neurologic: CNII-XII intact, moves all extremities Plan Activity: no restrictions Diet: low salt Follow up with: RADHA CAI MD [Primary Care Provider] - 7 Days AIDEE PENALOZA MD [Staff Physician] - 7 Days Forms: Warfarin Discharge Instruction
[2019-09-01] MEDS ORDERED: WARFARIN 2.5 MG TAB PO SCH (17:00)
== END 2019-09-01 17:18 | disposition home or self-care (01) ==
LOC: ED 11:02 → 4A 14:51
PROVIDERS: ADMIT Internal Medicine; ATTEND Internal Medicine
DX: M94.0 Chondrocostal junction syndrome [Tietze] (principal); I48.0 Paroxysmal atrial fibrillation; I10 Essential (primary) hypertension; I25.10 Atherosclerotic heart disease of native coronary artery without angina pectoris; E78.5 Hyperlipidemia, unspecified; K21.9 Gastro-esophageal reflux disease without esophagitis; L27.0 Generalized skin eruption due to drugs and medicaments taken internally; Z79.01 Long term (current) use of anticoagulants; Z79.899 Other long term (current) drug therapy; Z88.5 Allergy status to narcotic agent; Z88.1 Allergy status to other antibiotic agents; Z91.048 Other nonmedicinal substance allergy status
CPT/HCPCS: 36415; 71045; 78452; 80053; 84484; 85025; 85610; 93005; 93017; 99285; A9270; A9502; G0378; J2785